=== PATIENT | male | born 1990 | race Caucasian/White ===

== ENCOUNTER 2020-11-27 13:45 | Emergency (ER) | payer OTHER ==
[2020-11-27 14:04] VITALS: BP 146/98; PULSE 105; RESP 20; TEMP 98.3
[2020-11-27] MEDS ORDERED: cefTRIAXone 250 MG VIAL IM STA (14:30)
[2020-11-27] MEDS ORDERED: AZITHROMYCIN 250 MG TAB PO STA (14:30)
--- NOTE | 2020-11-27 14:39 | ED ---
Abdominal Pain HPI - General Chief Complaint: Abdominal Pain Stated Complaint: Abd pain Source: patient, RN notes reviewed Mode of arrival: ambulatory Limitations: no limitations - History of Present Illness Initial Comments: 29-year-old white male, well-appearing alert and oriented 4, presents to the emergency room with complaints of dysuria and burning after having unprotected sex 6 weeks ago. Patient states that there is mild penile discharge but denies any scrotal pain. There is no nausea vomiting or diarrhea and there is no fevers. Patient has no medical history does not take any medications on a daily basis. MD Complaint: other -: week(s) (6) Radiation: none Quality: burning Consistency: intermittent Improves With: nothing Worsens With: other ([place]) Context: other (Started after unprotected sex 6 weeks ago) - Related Data Home Medications Medication Instructions Recorded Confirmed No Known Home Medications 11/27/20 11/27/20 Allergies Allergy/AdvReac Type Severity Reaction Status Date / Time morphine AdvReac SUICIDAL Verified 11/27/20 14:40 Review of Systems ROS Statement: Those systems with pertinent positive or pertinent negative responses have been documented in the HPI. ROS Other: All systems not noted in ROS Statement are negative. Past Medical History Past Medical History: No Reported History History of Any Multi-Drug Resistant Organisms: None Reported Additional Past Surgical History / Comment(s): hernia repair - inguinal Past Psychological History: No Psychological Hx Reported Smoking Status: Never smoker Past Alcohol Use History: None Reported Past Drug Use History: None Reported General Exam Limitations: no limitations General appearance: alert, in no apparent distress Head exam: Present: atraumatic, normocephalic, normal inspection Eye exam: Present: normal appearance, PERRL, EOMI. Absent: scleral icterus, conjunctival injection, periorbital swelling ENT exam: Present: normal exam, normal oropharynx, mucous membranes moist Neck exam: Present: normal inspection, full ROM. Absent: tenderness, meningismus, lymphadenopathy, thyromegaly Respiratory exam: Present: normal lung sounds bilaterally. Absent: respiratory distress, wheezes, rales, rhonchi, stridor, chest wall tenderness, accessory muscle use, decreased breath sounds Cardiovascular Exam: Present: regular rate, normal rhythm, normal heart sounds. Absent: systolic murmur, diastolic murmur, rubs, gallop, clicks GI/Abdominal exam: Present: soft, normal bowel sounds, other (suprapubic pain to palpation). Absent: distended, tenderness, guarding, rebound, rigid Extremities exam: Present: normal inspection, full ROM, normal capillary refill. Absent: tenderness, pedal edema, joint swelling, calf tenderness Back exam: Present: normal inspection Neurological exam: Present: alert, oriented X3, CN II-XII intact, normal gait Psychiatric exam: Present: normal affect, normal mood Skin exam: Present: warm, dry, intact, normal color. Absent: rash, cyanosis, diaphoretic, erythema, petechiae, pallor, mottled Course Vital Signs 11/27/20 14:01 Temperature 98.3 F Pulse Rate 105 H Respiratory 20 Rate Blood Pressure 146/98 O2 Sat by Pulse 96 Oximetry Medical Decision Making - Medical Decision Making Patient had unprotected sex 6 weeks prior and has been having dysuria since. He states that there is some mild penile discharge. He states that he has noticed some blood in his urine. Patient denies any testicular pain. No fevers nausea, vomiting or diarrhea. He does not have a sore throat. Patient has not seen his primary care doctor in over 9 months. UA shows small blood negative leukocyte esterase negative nitrites. Culture for chlamydia and gonorrhea sent along with urinalysis. Patient will be treated for STi with Zithromax 1 g and Rocephin 500 mg as directed to follow up with his primary care doctor. Case discussed with Dr. Marquez - Lab Data Lab Results 11/27/20 Range/Units 14:38 Urine Color Yellow Urine Appearance Clear (Clear) Urine pH 6.5 (5.0-8.0) Ur Specific [place] 1.025 (1.001-1.035) Urine Protein Negative (Negative) Urine Glucose (UA) Negative (Negative) Urine Ketones Negative (Negative) Urine Blood Small H (Negative) Urine Nitrite Negative (Negative) Urine Bilirubin Negative (Negative) Urine Urobilinogen <2.0 (<2.0) mg/dL Ur Leukocyte Esterase Negative (Negative) Urine RBC 8 H (0-5) /hpf Urine WBC 1 (0-5) /hpf Ur Squamous Epith Cells 1 (0-4) /hpf Hyaline Casts 1 (0-2) /lpf Urine Mucus Occasional H (None) /hpf Disposition Clinical Impression: Sexually transmitted infection Disposition: HOME SELF-CARE Condition: Good Additional Instructions: Follow-up with the primary care doctor in 1 week. No unprotected sex for the next 2 weeks. Have your partner treated. Return if worsening symptoms, increased pain or fever. Is patient prescribed a controlled substance at d/c from ED?: No Referrals: Nonstaff,Physician [REFERRING] - 1-2 days Mike Kessler [STAFF PHYSICIAN] - 1-2 days Time of Disposition: 14:37
[2020-11-27 14:57] LABS: Appearance,Urine Clear (Clear); Bilirubin,Urine Negative (Negative); Blood,Urine Small (Negative); Color,Urine Yellow; Glucose,Urine (UA) Negative (Negative); Hyaline Casts,Urine 1 /lpf (0-2); Ketones,Urine Negative (Negative); Leukocyte Esterase,Urine Negative (Negative); Mucus,Urine Occasional /hpf; Nitrite,Urine Negative (Negative); PH, Urine 6.5 (5.0-8.0); Protein,Urine Negative (Negative); RBC,Urine 8 /hpf (0-5); Specific Gravity,Urine 1.025 (1.001-1.035); Squamous Epithelial Cell,Urine 1 /hpf (0-4); Urobilinogen,Urine <2.0 mg/dL (<2.0); WBC,Urine 1 /hpf (0-5)
[2020-11-28 15:53] LABS: C. trachomatis,PCR Negative (Neg,Equiv); Chlamydia trachomatis Source Urine; N. gonorrhoeae,PCR Negative (Neg,Equiv); Neisseria Source Urine
== END 2020-11-27 15:44 | disposition home or self-care (01) ==
LOC: EC 13:45
DX: A64 Unspecified sexually transmitted disease (principal)
CPT/HCPCS: 81001; 87491; 87591; 96372; 99284; J0696

== ENCOUNTER → 2021-02-15 | Outpatient (CLI) | payer OTHER ==
--- NOTE | 2021-02-15 14:55 | US ---
EXAMINATION TYPE: US kidneys/renal and bladder DATE OF EXAM: 02/15/2021 COMPARISON: NONE CLINICAL HISTORY: R31.9 Hematuria. Hematuria. EXAM MEASUREMENTS: Right Kidney: 10.0 x 5.2 x 4.9 cm Left Kidney: 10.4 x 5.2 x 4.9 cm Right Kidney: Indistinct, hypoechoic area seen upper pole measuring 2.3 x 1.9 x 1.1 cm. Left Kidney: No hydronephrosis or masses seen Bladder: Appears anechoic. Bilateral Jets seen: Yes. IMPRESSION: Right renal cystic lesion. Otherwise unremarkable study.
== END | disposition home or self-care (01) ==
LOC: RADUSWWP 14:06
PROVIDERS: ATTEND Urology
DX: N28.1 Cyst of kidney, acquired (principal)
CPT/HCPCS: 76770

== ENCOUNTER 2023-05-28 17:12 | Emergency (ER) | payer OTHER ==
--- NOTE | 2023-05-28 17:35 | ED ---
Headache HPI <Tasha Gaston - Last Filed: 05/28/23 17:34> <Jason Mendoza - Last Filed: 05/28/23 21:03> - General Stated Complaint: Headache Time Seen by Provider: 05/28/23 17:34 - History of Present Illness Initial Comments: Patient is a 32-year-old gentleman who presents emergency room with complaints of pain to the right side of the head for the last 12 days. (Tasha Gaston) 32-year-old male presenting to the ED with a chief complaint of headache. Patient states for the past 12 days has had intermittent headache. Headache lasted approximately 1-2 minutes. States she gets 5-10 minutes of relief. Stat es pain is often provoked by movement, especially movement of his right shoulder. Patient does note he gets occasional tearing but notes that this is on the left side. No congestion, conjunctivitis, sweating, or other associated symptoms. No chest pain or shortness of breath. No other complaints. Patient does notes he went to the chiropractor today and had a neck adjustment. States the headache did not get worse after the adjustment and has had no new symptoms after adjustment. (Jason Mendoza) - Related Data Home Medications Medication Instructions Recorded Confirmed No Known Home Medications 11/27/20 11/27/20 Allergies Allergy/AdvReac Type Severity Reaction Status Date / Time morphine AdvReac SUICIDAL Verified 05/28/23 18:21 Review of Systems ROS Other: All systems not noted in ROS Statement are negative. <Tasha Gaston - Last Filed: 05/28/23 17:34> ROS Other: All systems not noted in ROS Statement are negative. <Jason Mendoza - Last Filed: 05/28/23 21:03> ROS Statement: Those systems with pertinent positive or pertinent negative responses have been documented in the HPI. Past Medical History Past Medical History: No Reported History History of Any Multi-Drug Resistant Organisms: None Reported Additional Past Surgical History / Comment(s): hernia repair - inguinal Past Psychological History: No Psychological Hx Reported Smoking Status: Never smoker Past Alcohol Use History: None Reported Past Drug Use History: None Reported <Tasha Gaston - Last Filed: 05/28/23 17:34> General Exam General appearance: alert, in no apparent distress Eye exam: Present: normal appearance, PERRL, EOMI Neck exam: Present: normal inspection Respiratory exam: Present: normal lung sounds bilaterally Cardiovascular Exam: Present: regular rate, normal rhythm GI/Abdominal exam: Present: soft (No tenderness to palpation. No rebound guarding or rigidity.) Extremities exam: Present: other (Shrugging of the right shoulder reproduces pain.) Neurological exam: Present: alert, oriented X3, CN II-XII intact, other (Finger to nose, rapid alternating hand movements, and heel to gerard intact.) Skin exam: Present: warm, dry <Evangelist Mendozaua - Last Filed: 05/28/23 21:03> Course Vital Signs 05/28/23 05/28/23 18:17 18:58 Temperature 98 F 98.0 F Pulse Rate 73 82 Respiratory 17 18 Rate Blood Pressure 135/99 152/79 O2 Sat by Pulse 96 97 Oximetry Medical Decision Making <KellyJason - Last Filed: 05/28/23 21:03> - Medical Decision Making Was pt. sent in by a medical professional or institution (, PA, POISING INSPECTOR, urgent care, hospital, or skilled nursing...) When possible be specific @ -No Did you speak to anyone other than the patient for history (EMS, parent, family, police, friend...)? What history was obtained from this source @ -No Did you review nursing and triage notes (agree or disagree)? Why? @ -I reviewed and agree with nursing and triage notes Were old charts reviewed (outside hosp., previous admission, EMS record, old EKG, old radiological studies, urgent care reports/EKG's, skilled nursing records)? Report findings @ -No old charts were reviewed Differential Diagnosis (chest pain, altered mental status, abdominal pain women, abdominal pain men, vaginal bleeding, weakness, fever, dyspnea, syncope, headache, dizziness, GI bleed, back pain, seizure, CVA, palpatations, mental health, musculoskeletal)? @ -Differential Headache: Migraine, tension, cluster, carbon monoxide, central venous thrombosis, pension karma temporal arteritis, acute closure glaucoma, intercranial hemorrhage, mastoiditis, sinusitis, head injury, this is not meant to be an all-inclusive list. EKG interpreted by me (3pts min.). @ -None X-rays interpreted by me (1pt min.). @ -None done CT interpreted by me (1pt min.). @ -CT of the brain interpreted by me showing no evidence of bleed or other acute finding. U/S interpreted by me (1pt. min.). @ -None done What testing was considered but not performed or refused? (CT, X-rays, U/S, labs)? Why? @ -CTA head and neck was considered to rule out vertebral dissection with history of recent neck manipulation however patient denies worsening of headache or new symptoms and declined this testing at this time. What meds were considered but not given or refused? Why? @ -None Did you discuss the management of the patient with other professionals (professionals i.e. , PA, POISING INSPECTOR, lab, RT, psych nurse, social services specialist, road marker, teacher, zoology technical officer, wrapper caser)? Give summary @ -No Was smoking cessation discussed for >3mins.? @ -No Was critical care preformed (if so, how long)? @ -No Were there social determinants of health that impacted care today? How? (Homelessness, low income, unemployed, alcoholism, drug addiction, transportation, low edu. Level, literacy, decrease access to med. care, snf, rehab)? @ -No Was there de-escalation of care discussed even if they declined (Discuss DNR or withdrawal of care, Hospice)? DNR status @ -No What co-morbidities impacted this encounter? (DM, HTN, Smoking, COPD, CAD, Cancer, CVA, ARF, Chemo, Hep., AIDS, mental health diagnosis, sleep apnea, morbid obesity)? @ -None Was patient admitted / discharged? Hospital course, mention meds given and route, prescriptions, significant lab abnormalities, going to OR and other pertinent info. @ -Discharge 32-year-old male presenting to the ED with complaints of headache intermittently for the past [address] brain shows no acute finding. Exam shows tenderness to palpation over the right trapezius muscle and patient noted reproduction of headache with shrugging his shoulder. Symptoms likely muscular skeletal in nature. Patient noted good relief with Toradol here in the ED. Patient declined prescription for pain medications. Discharged home in stable condition and advised to follow-up with his PCP. Discussed return precautions with patient who verbalized agreement. Undiagnosed new problem with uncertain prognosis? @ -No Drug Therapy requiring intensive monitoring for toxicity (Heparin, Nitro, Insulin, Cardizem)? @ -No Were any procedures done? @ -No Diagnosis/symptom? @ -Headache Acute, or Chronic, or Acute on Chronic? @ -Acute Uncomplicated (without systemic symptoms) or Complicated (systemic symptoms)? @ -Uncomplicated Side effects of treatment? @ -No Exacerbation, Progression, or Severe Exacerbation? @ -No Poses a threat to life or bodily function? How? (Chest pain, [place], [place], pneumonia, PE, COPD, DKA, ARF, appy, cholecystitis, CVA, Diverticulitis, Homicidal, Suicidal, threat to staff... and all critical care pts) @ -No (Jason Mendoza) Disposition <Tasha Gaston - Last Filed: 05/28/23 17:34> Is patient prescribed a controlled substance at d/c from ED?: No Time of Disposition: 21:03 <Jason Mendoza - Last Filed: 05/28/23 21:03> Clinical Impression: Headache Disposition: HOME SELF-CARE Condition: Good Additional Instructions: Please return to the Emergency Department if symptoms worsen or any other concerns. Please follow up with your PCP. Referrals: None,Stated [Primary Care Provider] - 1-2 days
[2023-05-28 19:19] VITALS: RESP 18; TEMP 98
[2023-05-28] MEDS ORDERED: KETOROLAC 15 MG/ML 1 ML VIAL IM STA (19:57)
--- NOTE | 2023-05-28 20:43 | CT ---
EXAMINATION TYPE: CT brain wo con CT DLP: 1136.6 mGycm, Automated exposure control for dose reduction was used. DATE OF EXAM: 05/28/2023 6:34 PM COMPARISON: None. CLINICAL INDICATION:Male, 32 years old with history of severe head pain, Rt side AZAR [id number], no injur y. Hx of migraines. TECHNIQUE: Brain: Axial CT images of the brain were obtained with coronal and sagittal reformats created and rev iewed. Contrast used: None. Oral contrast used: None. FINDINGS: Brain: Extra-axial spaces: No abnormal extra-axial fluid collections. Ventricular system: Within normal limits Cerebral parenchyma: No acute intraparenchymal hemorrhage or mass effect. The andrews-white junction is well differentiated. Cerebellum: Unremarkable. Mass effect: No evidence of midline shift. Intracranial vasculature: unremarkable Soft tissues: Normal. Calvarium/osseous structures: No depressed skull fracture. Paranasal sinuses and mastoid air cells: Mild scattered paranasal sinus disease. Visualized orbits: Orbital contents are intact. IMPRESSION: No acute intracranial process.
[2023-05-28 21:24] VITALS: BP 130/86; PULSE 67
== END 2023-05-28 21:15 | disposition home or self-care (01) ==
LOC: EC 17:12
DX: R51.9 Headache, unspecified (principal); Z88.5 Allergy status to narcotic agent
CPT/HCPCS: 70450; 99284; 96372; J1885

== ENCOUNTER 2023-06-06 13:17 | Emergency (ER) | payer OTHER ==
--- NOTE | 2023-06-06 13:28 | ED ---
General Adult HPI - General Source: patient, RN notes reviewed Mode of arrival: ambulatory Limitations: no limitations <Araceli Medley - Last Filed: 06/06/23 13:28> <Ric Wall - Last Filed: 06/06/23 18:21> - General Chief complaint: Recheck/Abnormal Lab/Rx Stated complaint: left side numbness Time Seen by Provider: 06/06/23 13:28 - History of Present Illness Initial comments: 32-year-old male presents to the emergency department for evaluation of right- sided headache that has been going on for about 3 weeks. He states that he was evaluated in the emergency department here for this around one week ago. Patient states that he woke up to tingling in his left arm at 3am. (Araceli Medley) Patient presents to the ED stating that he awoke at about 3 AM this morning with "numbness and tingling" in his left arm. Patient states that as the day went on, he noticed similar symptoms develop in his left leg and right hand as well. Patient states that his symptoms seem to be improving. Patient states that he has also had a right sided headache for the past month or so. Patient states that he was told that he needs a new furnace, and he is concerned that he may have been exposed to carbon monoxide. Patient denies fever or chills, head trauma or injury, sudden onset of headache, LOC, neck pain or stiffness, focal weakness, visual changes, speech difficulty, dizziness, chest pain or pressure, dyspnea, cough or cold symptoms, palpitations, abdominal pain, nausea/vomiting/diarrhea, bloody or melanotic stool, dysuria or urinary symptoms, or any other symptoms or complaints. Patient denies tobacco, alcohol or illicit drug use. (Ric Wall) - Related Data Home Medications Medication Instructions Recorded Confirmed No Known Home Medications 11/27/20 11/27/20 Allergies Allergy/AdvReac Type Severity Reaction Status Date / Time morphine AdvReac SUICIDAL Verified 06/06/23 13:25 Review of Systems ROS Other: All systems not noted in ROS Statement are negative. <Araceli Medley - Last Filed: 06/06/23 13:28> ROS Other: All systems not noted in ROS Statement are negative. <Ric Wall - Last Filed: 06/06/23 18:21> ROS Statement: Those systems with pertinent positive or pertinent negative responses have been documented in the HPI. Past Medical History Past Medical History: No Reported History Additional Past Medical History / Comment(s): MIGRAINES History of Any Multi-Drug Resistant Organisms: None Reported Additional Past Surgical History / Comment(s): hernia repair - inguinal Past Psychological History: No Psychological Hx Reported Smoking Status: Never smoker Past Alcohol Use History: None Reported Past Drug Use History: None Reported <Araceli Medley - Last Filed: 06/06/23 13:28> General Exam Limitations: no limitations <Araceli Medley - Last Filed: 06/06/23 13:28> General appearance: alert, in no apparent distress Head exam: Present: atraumatic, normocephalic Eye exam: Present: normal appearance, PERRL, EOMI ENT exam: Present: mucous membranes moist Neck exam: Absent: tenderness, meningismus Respiratory exam: Present: normal lung sounds bilaterally. Absent: respiratory distress, wheezes, rales, rhonchi, stridor Cardiovascular Exam: Present: regular rate, normal rhythm, normal heart sounds, other (Normal radial pulses bilaterally) GI/Abdominal exam: Present: soft. Absent: distended, tenderness, guarding Extremities exam: Present: full ROM. Absent: tenderness, pedal edema, calf tenderness Back exam: Absent: tenderness Neurological exam: Present: alert, oriented X3, CN II-XII intact, other (NIH stroke scale score = 0). Absent: motor sensory deficit Skin exam: Present: warm, dry, intact, normal color <Ric Wall - Last Filed: 06/06/23 18:21> - General Exam Comments Initial Comments: Visual Physical Exam Vital signs reviewed General: Well-appearing, nontoxic, no acute distress. Head: Normocephalic, atraumatic Eyes: PERRLA, EOMI ENT: Airway patent Chest: Nonlabored breathing Skin: No visual rash, normal skin tone Neuro: Alert and oriented 3 Musculoskeletal: No gross abnormalities (Araceli Medley) Course <Ric Wall - Last Filed: 06/06/23 18:21> Vital Signs 06/06/23 06/06/23 13:20 17:30 Temperature 98.3 F Pulse Rate 100 88 Respiratory 18 18 Rate Blood Pressure 140/99 157/94 O2 Sat by Pulse 96 98 Oximetry - Reevaluation(s) Reevaluation #1: 06/06/23 18:12 Patient denies development of any new symptoms while in the ED. Patient's neurological exam remains unchanged, and he continues to have an NIH stroke scale score of 0. Patient is aware of his test results, and he feels comf ortable being discharged home at this time. Patient was counseled about headaches and paresthesias. Patient was instructed to follow up closely with a primary care provider. Patient was clearly explained return and follow-up instructions, and he was given strict return instructions. Will discharge patient home at this time. Patient feels comfortable with this plan. (Ric Wall) EKG Findings - EKG Comments: EKG Findings:: ED physician interpretation (interpreted by me): Normal sinus rhythm, ventricular rate of 76 bpm, no ectopy, normal CA and QRS intervals, normal QT interval, normal axis, no ST or T-wave abnormality <Ric Wall - Last Filed: 06/06/23 18:21> Medical Decision Making <Araceli Medley - Last Filed: 06/06/23 13:28> - Lab Data Result diagrams: 06/06/23 16:11 06/06/23 16:11 <Ric Wall - Last Filed: 06/06/23 18:21> - Medical Decision Making Quick note preformed by Araceli Medley PA-C (Araceli Medley) Was pt. sent in by a medical professional or institution (SWAPNA Hassan, CARDIAC NURSE PRACTITIONER, urgent care, hospital, or retirement...) When possible be specific @ -No Did you speak to anyone other than the patient for history (EMS, parent, family, police, friend...)? What history was obtained from this source @ -No Did you review nursing and triage notes (agree or disagree)? Why? @ -I reviewed and agree with nursing and triage notes Were old charts reviewed (outside hosp., previous admission, EMS record, old EKG, old radiological studies, urgent care reports/EKG's, retirement records)? Report findings @ -No old charts were reviewed Differential Diagnosis (chest pain, altered mental status, abdominal pain women, abdominal pain men, vaginal bleeding, weakness, fever, dyspnea, syncope, headache, dizziness, GI bleed, back pain, seizure, CVA, palpatations, mental health, musculoskeletal)? @ -Differential Headache: Migraine, tension, cluster, carbon monoxide, intracranial mass, intracranial hemorrhage, sinusitis, paresthesias, neuropathy, radiculopathy, DDD, herniated disc disease, electrolyte abnormality, anxiety, this is not meant to be an all- inclusive list. EKG interpreted by me (3pts min.). @ -As above X-rays interpreted by me (1pt min.). @ -Chest x-ray was reviewed myself and shows no acute abnormality. CT interpreted by me (1pt min.). @ -Noncontrast head CT was reviewed myself and shows no acute intracranial abnormality. I agree with the radiologist's interpretation as above. U/S interpreted by me (1pt. min.). @ -None done What testing was considered but not performed or refused? (CT, X-rays, U/S, labs)? Why? @ -None What meds were considered but not given or refused? Why? @ -None Did you discuss the management of the patient with other professionals (professionals i.e. , PA, CARDIAC NURSE PRACTITIONER, lab, RT, psych nurse, social media executive, hat and cap parts cutter hand, teacher, licensed mortgage loan officer, lead case manager)? Give summary @ -No Was smoking cessation discussed for >3mins.? @ -No Was critical care preformed (if so, how long)? @ -No Were there social determinants of health that impacted care today? How? (Homelessness, low income, unemployed, alcoholism, drug addiction, t ransportation, low edu. Level, literacy, decrease access to med. care, alf, rehab)? @ -No Was there de-escalation of care discussed even if they declined (Discuss DNR or withdrawal of care, Hospice)? DNR status @ -No What co-morbidities impacted this encounter? (DM, HTN, Smoking, COPD, CAD, Cancer, CVA, ARF, Chemo, Hep., AIDS, mental health diagnosis, sleep apnea, morbid obesity)? @ -None Was patient admitted / discharged? Hospital course, mention meds given and route, prescriptions, significant lab abnormalities, going to OR and other pertinent info. @ -Patient has a normal neurological exam. Patient's EKG, labs and imaging studies are all fairly unremarkable. I do not suspect an emergent medical condition at this time. Patient has a history of migraine headaches, and I have explained to him that his symptoms may be due to a migraine headache. Patient was instructed to follow up closely with a primary care provider, and he was given strict return instructions. Patient feels comfortable with this plan. Undiagnosed new problem with uncertain prognosis? @ -No Drug Therapy requiring intensive monitoring for toxicity (Heparin, Nitro, Insulin, Cardizem)? @ -No Were any procedures done? @ -No Diagnosis/symptom? @ -default Acute, or Chronic, or Acute on Chronic? @ -Headache Uncomplicated (without systemic symptoms) or Complicated (systemic symptoms)? @ -default Side effects of treatment? @ -No Exacerbation, Progression, or Severe Exacerbation? @ -No Poses a threat to life or bodily function? How? (Chest pain, [place], [place], pneumonia, PE, COPD, DKA, ARF, appy, cholecystitis, CVA, Diverticulitis, Homicidal, Suicidal, threat to staff... and all critical care pts) @ -No Diagnosis/symptom? @ -Paresthesias Acute, or Chronic, or Acute on Chronic? @ -Acute Uncomplicated (without systemic symptoms) or Complicated (systemic symptoms)? @ -default Side effects of treatment? @ -none Exacerbation, Progression, or Severe Exacerbation] @ -no Poses a threat to life or bodily function? @ -no (Ric Wall) - Lab Data Lab Results 06/06/23 06/06/23 06/06/23 Range/Units 16:11 16:11 16:11 WBC 9.2 (3.8-10.6) k/uL RBC 4.83 (4.30-5.90) m/uL Hgb 15.8 (13.0-17.5) gm/dL Hct 45.5 (39.0-53.0) % MCV 94.2 (80.0-100.0) fL MCH 32.7 (25.0-35.0) pg MCHC 34.7 (31.0-37.0) g/dL RDW 11.8 (11.5-15.5) % Plt Count 273 (150-450) k/uL MPV 7.3 Neutrophils % 64 % Lymphocytes % 25 % Monocytes % 5 % Eosinophils % 3 % Basophils % 1 % Neutrophils # 5.9 (1.3-7.7) k/uL Lymphocytes # 2.3 (1.0-4.8) k/uL Monocytes # 0.5 (0-1.0) k/uL Eosinophils # 0.3 (0-0.7) k/uL Basophils # 0.1 (0-0.2) k/uL PT 10.6 (10.0-12.5) sec INR 1.0 (<1.2) APTT 25.9 (22.0-30.0) sec Carbon Monoxide, Quant (<10.0) % Sodium 140 (137-145) mmol/L Potassium 4.0 (3.5-5.1) mmol/L Chloride 103 (98-107) mmol/L Carbon Dioxide 24 (22-30) mmol/L Anion Gap 13 mmol/L BUN 17 (9-20) mg/dL Creatinine 0.75 (0.66-1.25) mg/dL Est GFR (CKD-EPI)AfAm >90 (>60 ml/min/1.73 sqM) Est GFR (CKD-EPI)NonAf >90 (>60 ml/min/1.73 sqM) Glucose 94 (74-99) mg/dL Calcium 9.5 (8.4-10.2) mg/dL Magnesium 2.1 (1.6-2.3) mg/dL Total Bilirubin 1.1 (0.2-1.3) mg/dL AST 28 (17-59) U/L ALT 60 H (4-49) U/L Alkaline Phosphatase 87 (38-126) U/L Creatine Kinase 90 (55-170) U/L Troponin I (0.000-0.034) ng/mL Total Protein 8.0 (6.3-8.2) g/dL Albumin 4.6 (3.5-5.0) g/dL 06/06/23 06/06/23 Range/Units 16:11 17:45 WBC (3.8-10.6) k/uL RBC (4.30-5.90) m/uL Hgb (13.0-17.5) gm/dL Hct (39.0-53.0) % MCV (80.0-100.0) fL MCH (25.0-35.0) pg MCHC (31.0-37.0) g/dL RDW (11.5-15.5) % Plt Count (150-450) k/uL MPV Neutrophils % % Lymphocytes % % Monocytes % % Eosinophils % % Basophils % % Neutrophils # (1.3-7.7) k/uL Lymphocytes # (1.0-4.8) k/uL Monocytes # (0-1.0) k/uL Eosinophils # (0-0.7) k/uL Basophils # (0-0.2) k/uL PT (10.0-12.5) sec INR (<1.2) APTT (22.0-30.0) sec Carbon Monoxide, Quant 1.8 (<10.0) % Sodium (137-145) mmol/L Potassium (3.5-5.1) mmol/L Chloride (98-107) mmol/L Carbon Dioxide (22-30) mmol/L Anion Gap mmol/L BUN (9-20) mg/dL Creatinine (0.66-1.25) mg/dL Est GFR (CKD-EPI)AfAm (>60 ml/min/1.73 sqM) Est GFR (CKD-EPI)NonAf (>60 ml/min/1.73 sqM) Glucose (74-99) mg/dL Calcium (8.4-10.2) mg/dL Magnesium (1.6-2.3) mg/dL Total Bilirubin (0.2-1.3) mg/dL AST (17-59) U/L ALT (4-49) U/L Alkaline Phosphatase (38-126) U/L Creatine Kinase (55-170) U/L Troponin I <0.012 (0.000-0.034) ng/mL Total Protein (6.3-8.2) g/dL Albumin (3.5-5.0) g/dL - Radiology Data Chest x-ray (reviewed myself): No acute cardiopulmonary process. Noncontrast head CT: No acute intracranial process. Follow-up MRI can be performed as indicated. (Ric Wall) Disposition <Araceli Medley - Last Filed: 06/06/23 13:28> Is patient prescribed a controlled substance at d/c from ED?: No Time of Disposition: 18:16 <Sagar Wallul - Last Filed: 06/06/23 18:21> Clinical Impression: Headache, Paresthesias Disposition: HOME SELF-CARE Condition: Stable Instructions (If sedation given, give patient instructions): Acute Headache (ED), Paresthesia (ED) Additional Instructions: Return to the ER immediately should you develop new or worsening pain, new or worsening numbness/tingling, weakness, a fever, shortness of breath, feeling dizzy or faint, or new or worsening symptoms. Follow up closely with your primary care provider. Referrals: None,Stated [Primary Care Provider] - 1-2 days Keith Blake DO [STAFF PHYSICIAN] - 1-2 days
[2023-06-06 13:36] VITALS: RESP 18
[2023-06-06 16:23] LABS: Basophils # (A) 0.1 k/uL (0-0.2); Basophils % (A) 1 %; Eosinophils # (A) 0.3 k/uL (0-0.7); Eosinophils % (A) 3 %; HCT 45.5 % (39.0-53.0); HGB 15.8 gm/dL (13.0-17.5); Lymphocytes # (A) 2.3 k/uL (1.0-4.8); Lymphocytes % (A) 25 %; MCH 32.7 pg (25.0-35.0); MCHC 34.7 g/dL (31.0-37.0); MCV 94.2 fL (80.0-100.0); Mean Platelet Volume 7.3; Monocytes # (A) 0.5 k/uL (0-1.0); Monocytes % (A) 5 %; Neutrophils # (A) 5.9 k/uL (1.3-7.7); Neutrophils % (A) 64 %; Platelet Count 273 k/uL (150-450); RBC 4.83 m/uL (4.30-5.90); RDW 11.8 % (11.5-15.5); WBC 9.2 k/uL (3.8-10.6)
[2023-06-06 16:35] LABS: Partial Thromboplastin Time 25.9 sec (22.0-30.0); Prothrombin Time 10.6 sec (10.0-12.5)
[2023-06-06 16:39] LABS: ALT 60 U/L (4-49); AST 28 U/L (17-59); African American GFR (CKD) >90 (>60 ml/min/1.73 sqM); Albumin 4.6 g/dL (3.5-5.0); Alkaline Phosphatase 87 U/L (38-126); Anion Gap 13 mmol/L; Blood Urea Nitrogen 17 mg/dL (9-20); Calcium 9.5 mg/dL (8.4-10.2); Carbon Dioxide 24 mmol/L (22-30); Chloride 103 mmol/L (98-107); Creatine Kinase 90 U/L (55-170); Glucose 94 mg/dL (74-99); Magnesium 2.1 mg/dL (1.6-2.3); Non-African American GFR(CKD) >90 (>60 ml/min/1.73 sqM); Sodium 140 mmol/L (137-145); Total Bilirubin 1.1 mg/dL (0.2-1.3)
--- NOTE | 2023-06-06 17:50 | CT ---
EXAMINATION TYPE: CT brain wo con DATE OF EXAM: 06/06/2023 COMPARISON: 05/28/2023 INDICATION: left side weakness and numbness, headache DLP: 1095.4 mGycm, Automated exposure control for dose reduction was used. CONTRAST: None CT of the brain is performed utilizing 3 mm thick sections through the posterior fossa and 3 mm thick sections through the remaining calvarium. Study is performed within 24 hours of arrival to the hosp ital. No abnormal hyperdensity is present to suggest an acute intracranial hemorrhage. No mass lesion is evident. No acute infarcts are evident. Ventricles and sulci are appropriate for the patient age. Paranasal sinuses and mastoid air cells within the [id number] are clear. IMPRESSION: 1. No acute intracranial process. Follow-up MRI can be performed as indicated.
[2023-06-06 18:59] VITALS: BP 142/98; PULSE 87; TEMP 98.7
--- NOTE | 2023-06-06 19:15 | XR ---
EXAMINATION TYPE: XR chest 2V DATE OF EXAM: 06/06/2023 5:17 PM CLINICAL INDICATION:Male, 32 years old with history of altered mental status; [facility] COMPARISON: None TECHNIQUE: XR chest 2V. Frontal and lateral views of the chest.. FINDINGS: Lines/Tubes/Devices: No indwelling lines are seen. Heart/mediastinum: Heart appears mildly enlarged. Mediastinum appears normal. Pulmonary vascularity: Not increased, Lungs/Pleura: There is no evidence of pleural effusion, focal consolidation, or pneumothorax. Musculoskeletal: No acute osseous abnormality demonstrated in the limits of the exam. Other findings: None. IMPRESSION: No acute cardiopulmonary abnormality.
== END 2023-06-06 18:43 | disposition home or self-care (01) ==
LOC: EC 13:17
DX: R20.2 Paresthesia of skin (principal); R51.9 Headache, unspecified; Z88.5 Allergy status to narcotic agent
CPT/HCPCS: 36415; 70450; 71046; 80053; 82375; 82550; 83735; 84484; 85025; 85610; 85730; 93005; 99284

== ENCOUNTER → 2024-12-02 | Day surgery (SDC) | payer BC ==
[2024-11-30 16:09] VITALS: BMI 36.0
[~2024-12-02] MED LIST: LIDOCAINE 1% INJ 10MG/ML (20 ML MDV) ONE; MIDAZOLAM 2 MG/2 ML VIAL ONE; PROPOFOL 10 MG/ML 20 ML VIAL IV ONE; fentaNYL (PF) 50 MCG/ML 2 ML AMP ONE
[2024-12-02] MEDS: IV FLUID CONTINUATION 1,000 ML IV ONE (07:34)
[2024-12-02 07:42] VITALS: TEMP 98.3
[2024-12-02] MEDS: LACTATED RINGERS 1,000 ML IV SCH (07:46)
--- NOTE | 2024-12-02 08:55 | P.PCN ---
Date of Procedure: 12/02/24 Procedure(s) Performed: Brief history: Patient is a pleasant 33-year-old white male scheduled for an elective upper endoscopy as well as colonoscopy as a part of evaluation of chronic epigastric pain for the last 6 months duration. And intermittent rectal bleeding for 2 years. Procedure performed: Esophagogastroduodenoscopy with biopsy Colonoscopy with biopsy Preoperative diagnosis: Chronic epigastric pain Intermittent rectal bleeding Anesthesia: MAC Procedure: After informed consent was obtained from the patient was brought into the endoscopy unit and IV sedation was administered by anesthesia under continuous monitoring. Initially upper endoscopy was done. The Olympus GF 160 video endoscope was inserted inserted into the mouth and esophagus intubated without any difficulty and was gradually advanced into the stomach and duodenum and carefully examined. The bulb and second part of the duodenum appeared normal. The scope was then withdrawn into the stomach adequately insufflated with air and upon careful examination the antrum had scattered regions of erythema consistent with gastritis and biopsies were done from this area. Body, cardia and fundus appeared normal. The scope was then withdrawn into the esophagus. The GE junction was located at 40 cm to the incisors. It appeared regular with no erythema erosions or ulcerations. The mucosa in the mid and distal esophagus appeared slightly thickened and biopsies were done from this area to rule out eosinophilic esophagitis. Rest of the esophagus appeared normal. Patient tolerated the procedure well. At this time the patient continued to remain sedation. Initial digital rectal examination was normal. Olympus CF 160 video colonoscope was then inserted into the rectum and gradually advanced to the cecum without any difficulty. Careful examination was performed as the scope was gradually being withdrawn. The prep was excellent. The cecum, ascending colon, transverse colon, descending colon, appeared normal. In the sigmoid colon and a patchy areas of erythema identified but no active colitis. Biopsies were done from from this area. The rectum appeared normal. Retroflexion was performed in the rectum and small internal hemorrhoids were noted. Patient tolerated the procedure well. Impression: 1. Upper endoscopy revealed mild antral gastritis and thickened mucosal folds in the mid and distal esophagus status post biopsies rule out eosinophilic esophagitis 2. Colonoscopy revealed patchy areas of erythema in the sigmoid colon and small internal hemorrhoids Recommendations: Findings of this examination were discussed with the patient as well as his family. He was advised to follow-up with the biopsy results. Continue with a high-fiber diet and take fiber supplements on a regular basis. Trial of Prilosec 20 mg daily for 6 weeks. If he still remain symptomatic he was advised to follow-up in the office for further management.
[2024-12-02 09:20] VITALS: PULSE 60; RESP 17
[2024-12-02 09:32] VITALS: BP 114/88
== END ==
LOC: ORWHC2ENDO 07:20
PROVIDERS: ATTEND Internal Medicine Gastroenterology
DX: K64.8 Other hemorrhoids (principal); K52.9 Noninfective gastroenteritis and colitis, unspecified; K29.50 Unspecified chronic gastritis without bleeding; K21.00 Gastro-esophageal reflux disease with esophagitis, without bleeding; I25.10 Atherosclerotic heart disease of native coronary artery without angina pectoris; Z88.5 Allergy status to narcotic agent
CPT/HCPCS: 88305; 45380; 43239; J2250; J2003; J3010; J2704